=== PATIENT | male | born 1995 | race Caucasian/White ===

== ENCOUNTER → 2018-03-19 | Outpatient (CLI) | payer BC ==
--- NOTE | 2018-03-19 10:24 | US ---
EXAMINATION TYPE: US abdomen complete DATE OF EXAM: 03/19/2018 COMPARISON: NONE CLINICAL HISTORY: R10.0 Unspecified abdominal pain. EXAM MEASUREMENTS: Liver Length: 13.3 cm Gallbladder Wall: 0.1 cm CBD: 0.3 cm Spleen: 9.5 cm Right Kidney: 10.1x4.4x4.1 cm Left Kidney: 10.2x4.4x4.7 cm Pancreas: wnl Liver: wnl Gallbladder: wnl Evidence for sonographic Bender's sign: No CBD: wnl Spleen: wnl Right Kidney: wnl Left Kidney: wnl Upper IVC: wnl Abd Aorta: wnl The liver is homogenous. The intrahepatic portion of the IVC and proximal abdominal aorta are within normal limits. There is no evidence of cholelithiasis. Common bile duct is unremarkable. The visu alized portions of the pancreas are homogenous. The spleen is unremarkable. Kidneys are symmetric a nd free of hydronephrosis. No renal lesions are seen. IMPRESSION: No sonographic evidence of cholelithiasis or acute cholecystitis. Given the patient's sym ptoms HIDA scan with CCK could evaluate for biliary dyskinesia or chronic cholecystitis.
== END | disposition home or self-care (01) ==
LOC: RADUSWWP 09:58
PROVIDERS: ATTEND Family Medicine
DX: R10.9 Unspecified abdominal pain (principal)
CPT/HCPCS: 76700